=== PATIENT | female | born 1990 | race Caucasian/White ===

== ENCOUNTER 2016-08-13 18:17 | Outpatient (RCR) | payer BC ==
[~2016-08-13] VITALS: Ht 172.7 cm; Wt 93.2 kg
[~2016-08-13 18:17] MED LIST: AMOXICILLIN 8751 TAB PO; CELEXA 20MG20 MG/TAB PO; CLARITIN 1010 MG/TAB PO; MONONESSA 35 MC1 TA1 PO
[2016-08-24 16:32] VITALS: BP 106/58; PULSE 76; TEMP 97.9
== END 2016-08-24 18:45 | disposition home or self-care (01) ==
LOC: COL.ER 08-17 14:11
DX: S61.255A Open bite of left ring finger without damage to nail, initial encounter (principal); W54.0XXA Bitten by dog, initial encounter; Y93.K9 Activity, other involving animal care; Y92.89 Other specified places as the place of occurrence of the external cause